=== PATIENT | female | born 1970 | race Hispanic/Latino ===

== ENCOUNTER → 2017-05-28 | Day surgery (SDC) | payer OTHER ==
[~2017-05-28] VITALS: Ht 162.6 cm; Wt 108.9 kg
[~2017-05-28] MED LIST: ACETAMINOPHEN-1 EAC3 PO; ACYCLOVIR400 M1 PO; CIPRO500 M1 PO; CITRATE OF MAG300 ML PO; COLACE100 M1 PO; IBUPROFEN600 M1 PO; KETOROLAC TROME10 M1 PO; LISINOPRIL5 M1 PO; METFORMIN HCL500 M3 PO; NEXIUM40 M1 PO; OXYCODONE-ACET1 EACH PO; PYLERA CAPSULE1 EACH; VALACYCLOVIR1000 MG PO; VESICARE10 MG PO; VITAMIN D250000 UNIT PO
--- NOTE | 2017-05-28 10:06 | Operative Report ---
Operative/Inv Procedure Report Surgery Date: 05/28/17 Name of Procedure: Open mesh repair of ventral incisional hernia (incarcerated) Pre-Operative Diagnosis: Incarcerated ventral incisional hernia Post-Operative Diagnosis: Same Estimated Blood Loss: scant Surgeon/Woodworker Helper: JOSR URRUTIA,GRABIEL MUÑOZ Anesthesia: general endotracheal tube Operative/Procedure Note Note: Patient was placed on the OR table in the supine position. After successful induction of general anesthesia, another timeout was done, antibiotics given, the abdomen was clipped prepped and draped in the usual sterile fashion. An incision was planned overlying the hernia, upper rim of the umbilicus, this spot was infiltrated with local anesthetic and then made with a 15 blade. This was deepened with cautery and the herniated fat and overlying sac were dissected circumferentially off the fascia, defining the true edges of the defect, this took some time because there was significant thickening and scar here from previous abdominal wall reconstruction / plastic surgery. It was oriented horizontally, we then inserted the Ventralex coated 4.3 centimeter mesh underneath the defect using the tails to center it and then closed the defect with interrupted 2-0 Maxon sutures in this case 3, incorporating the mesh with each bite. The subcutaneous layer and Terrie's fascia were reapproximated to cover. The incision was irrigated and then the skin was reapproximated with a running subcuticular 4-0 Biosyn, followed by Mastisol, Steri-Strips Telfa Tegaderm. EBL minimal lap and sponge counts correct wound expectancy clean IV fluids crystalloid complications none patient tolerated the procedure well was awakened extubated returned to the recovery room in satisfactory condition.
== END ==
LOC: STS 02:37
DX: K43.0 Incisional hernia with obstruction, without gangrene (principal); K21.9 Gastro-esophageal reflux disease without esophagitis; Z68.41 Body mass index [BMI] 40.0-44.9, adult; E11.9 Type 2 diabetes mellitus without complications; Z79.84 Long term (current) use of oral hypoglycemic drugs; I10 Essential (primary) hypertension; R39.198 Other difficulties with micturition
CPT/HCPCS: 81025; C1781; C9399; J0131; J0690; J1100; J1885; J2250; J2405